=== PATIENT | male | born 1995 ===

== ENCOUNTER 2018-03-19 05:30 | Observation (INO) | payer OTHER ==
[2018-03-19] MEDS ORDERED: Iohexol 240 (50 ml) PO ONE (06:04)
[2018-03-19] MEDS ORDERED: Sodium Chloride 0.9% 1,000 ML IV STA (06:05)
[2018-03-19] MEDS ORDERED: Iohexol 240 (50 ml) ONE (06:19)
[2018-03-19 06:28] LABS: BASO # 0.1 K/uL (0.0-0.2); BASO % 0.5 % (0.0-2.0); EOS # 0.1 K/uL (0.0-0.7); EOS % 0.4 % (0.0-4.0); HEMOGLOBIN 14.9 g/dL (12.0-18.0); LYMPH # 2.4 K/uL (1.0-4.3); LYMPH % 19.7 % (20.0-40.0); MEAN CELL VOLUME 84.1 fl (80.0-94.0); MEAN CORPUSCULAR HEMOGLOBIN 28.5 pg (27.0-31.0); MEAN CORPUSCULAR HGB CONC 33.9 g/dL (33.0-37.0); MEAN PLATELET VOLUME 7.4 fl (7.2-11.7); MONO # 1.2 K/uL (0.0-0.8); MONO % 9.9 % (0.0-10.0); NEUT # 8.4 K/uL (1.8-7.0); NEUT % 69.5 % (50.0-75.0); RBC 5.24 Mil/uL (4.40-5.90); RED CELL DISTRIBUTION WIDTH 13.6 % (11.5-14.5); WHITE BLOOD COUNT 12.1 K/uL (4.8-10.8)
--- NOTE | 2018-03-19 06:29 | ED PDOC ---
HPI: Abdomen Time Seen by Provider: 03/19/18 05:30 Chief Complaint (Nursing): Abdominal Pain Chief Complaint (Provider): Abdominal Pain History Per: Patient History/Exam Limitations: no limitations Onset/Duration Of Symptoms: Days (x1) Current Symptoms Are (Timing): Still Present Associated Symptoms: Fever, Vomiting, Diarrhea Additional Complaint(s): 23 year old male presents to ED with complaints of abdominal pain x1 day and has no past medical history. Patient notes being seen by PMD x1 week ago for flu-like symptoms and was prescribed Tamiflu with no relief. (+) vomiting, lack of PO tolerance, fever, and diarrhea x3 episodes. Patient confirms taking Bentyl for abdominal pain as well. PCP: FREDERICK Past Medical History Reviewed: Historical Data, Nursing Documentation, Vital Signs Vital Signs: Last Vital Signs Temp 98.3 F 03/19/18 23:27 Pulse 60 03/19/18 23:27 Resp 18 03/19/18 23:27 BP 106/66 03/19/18 23:27 Pulse Ox 99 03/19/18 23:27 - Medical History PMH: No Chronic Diseases - Surgical History Surgical History: No Surg Hx - Family History Family History: States: Unknown Family Hx - Social History Current smoker - smoking cessation education provided: Yes Ex-Smoker (has not smoked in the last 12 months): No Alcohol: Occasional Drugs: Denies - Home Medications Home Medications: Ambulatory Orders Medication Instructions Recorded No Known Home Med 03/19/18 - Allergies Allergies/Adverse Reactions: Allergies Allergy/AdvReac Type Severity Reaction Status Date / Time No Known Allergies Allergy Verified 03/19/18 05:42 Review of Systems ROS Statement: Except As Marked, All Systems Reviewed And Found Negative Constitutional: Positive for: Fever Gastrointestinal: Positive for: Vomiting, Abdominal Pain, Diarrhea, Other ((-) PO tolerance) Physical Exam - Reviewed Nursing Documentation Reviewed: Yes Vital Signs Reviewed: Yes - Physical Exam Appears: Positive for: Non-toxic, No Acute Distress Skin: Positive for: Normal Color, Warm, Dry Eye Exam: Positive for: Normal appearance, EOMI, PERRL ENT: Positive for: Normal ENT Inspection Cardiovascular/Chest: Positive for: Regular Rate, Rhythm. Negative for: Murmur Respiratory: Positive for: Normal Breath Sounds. Negative for: Respiratory Distress Gastrointestinal/Abdominal: Positive for: Soft, Tenderness (tenderness in upper abdomen). Negative for: Normal Exam Extremity: Positive for: Normal ROM. Negative for: Deformity Neurologic/Psych: Positive for: Alert, Oriented. Negative for: Motor/Sensory Deficits - Laboratory Results Result Diagrams: 03/19/18 06:09 03/19/18 06:09 - ECG O2 Sat by Pulse Oximetry: 98 (RA) Pulse Ox Interpretation: Normal Medical Decision Making Medical Decision Makin Initial impression: abdominal pain r/o intra-abdominal pathology Initial plan: * CTA A/P * Labs * Lipase * NS IV * Iohexol 50mL PO * Pepcid 20mg IVP * Zofran 4mg PO * Urine C&S * UA * Re-eval 0700 Patient will be signed out to Dr. Lebron pending work up and CT. Scribe Attestation: Documented by Vane Garcia acting as a scribe for Supriya Kevin MD. Scribe Attestation: All medical record entries made by the Scribe were at my direction and personally dictated by me. I have reviewed the chart and agree that the record accurately reflects my personal performance of the history, physical exam, medical decision making, and the department course for this patient. I have also personally directed, reviewed, and agree with the discharge instructions and disposition. Disposition - Clinical Impression Clinical Impression: Colitis, Intractable abdominal pain - Patient ED Disposition Is Patient to be Admitted: Transfer of Care - Disposition Disposition: Transfer of Care Disposition Time: 07:00 Condition: STABLE Patient Signed Over To: Tammy Lebron Handoff Comments: pending work up and CT
[2018-03-19 06:32] LABS: ALB/GLOB RATIO 1.1 (1.0-2.1); ALBUMIN 3.8 g/dL (3.5-5.0); ALT/SGPT 29 U/L (21-72); AST/SGOT 20 U/L (17-59); BLOOD UREA NITROGEN 17 mg/dl (9-20); CALCIUM 9.2 mg/dL (8.4-10.2); GFR AFRICAN-AMERICAN > 60; GFR NON-AFRICAN AMERICAN > 60; LIPASE 66 U/L (23-300)
[2018-03-19 06:54] LABS: URINE BILIRUBIN NEGATIVE (NEGATIVE); URINE BLOOD NEGATIVE (NEGATIVE); URINE CLARITY CLEAR (Clear); URINE COLOR COLORLESS (YELLOW); URINE GLUCOSE (UA) NEG (Normal); URINE LEUKOCYTE ESTERASE NEG Leu/uL (Negative); URINE PROTEIN NEGATIVE (NEGATIVE); URINE UROBILINOGEN 0.2-1.0 mg/dL (0.2-1.0)
[2018-03-19] MEDS ORDERED: Sodium Chloride 0.9% 100 ML ONE (08:22)
[2018-03-19] MEDS ORDERED: Iohexol 300 100 ML IJ ONE (08:22)
--- NOTE | 2018-03-19 09:33 | CT ---
PROCEDURE: CT Abdomen and Pelvis with contrast HISTORY: abd pain COMPARISON: None. TECHNIQUE: Following oral and intravenous contrast administration, a CT examination of the abdomen and pelvis performed from the domes of the diaphragms to the symphysis pubis with reformatted datasets provided not only axial but also sagittal and coronal series. Contrast dose: Omnipaque 300, 95 cc Radiation dose: Total exam DLP = 390.37 mGy-cm. This CT exam was performed using one or more of the following dose reduction techniques: Automated exposure control, adjustment of the mA and/or kV according to patient size, and/or use of iterative reconstruction technique. FINDINGS: LOWER THORAX: Unremarkable. LIVER: Unremarkable. No gross lesion or ductal dilatation. GALLBLADDER AND BILE DUCTS: Unremarkable. PANCREAS: Unremarkable. No gross lesion or ductal dilatation. SPLEEN: Unremarkable. ADRENALS: Unremarkable. No mass. KIDNEYS AND URETERS: Unremarkable. No hydronephrosis. No solid mass. VASCULATURE: Unremarkable. No aortic aneurysm. BOWEL: Stomach appears collapsed and is poorly evaluated. There is no bowel obstruction with opacified small bowel loops appear unremarkable per oral contrast was not yet reached the colon, however, the right hemicolon appears thick-walled with very little air in the lumen in a pattern suspicious for segmental colitis of indeterminate etiology. Consider infectious or inflammatory causes which are the most likely. Ischemia neoplasm not excluded but are included in the differential diagnosis. Good opacification is appreciated throughout the celiac and superior mesenteric arteries as well as the inferior mesenteric artery. There is a mild amount retained fecal material identified in the colon. The terminal ileum appears unremarkable. APPENDIX: Normal appearing retrocecal appendix. PERITONEUM: Unremarkable. No free fluid. No free air. LYMPH NODES: Unremarkable. No enlarged lymph nodes. BLADDER: Unremarkable. REPRODUCTIVE: Unremarkable. BONES: No acute fracture. OTHER FINDINGS: None. IMPRESSION: 1. Findings suspicious for segmental colitis affecting the right hemicolon without abscess or free intraperitoneal gas appreciated. No ascites. Consider infectious or inflammatory causes with additional differential diagnostic possibilities listed above. Follow-up colonoscopy advised following therapy. 2. Normal-appearing appendix.
[2018-03-19] MEDS ORDERED: Ciprofloxacin 400mg/200ml D5W 400 MG/200 ML BAG IV STA (09:43)
[2018-03-19] MEDS ORDERED: metroNIDAZOLE 500mg/100ml NS 100 ML IV STA (09:43)
--- NOTE | 2018-03-19 09:43 | ED PDOC ---
- Laboratory Results Result Diagrams: 03/19/18 06:09 03/19/18 06:09 - ECG O2 Sat by Pulse Oximetry: 98 Medical Decision Making Medical Decision Making: Accession No. : [id number] Patient Name / ID : HELGA GRAJEDA / [id number] Exam Date : 03/19/2018 08:34:22 ( Approved ) Study Comment : Sex / Age : M / 23Y Creator : Noam Sue MD Dictator : Noam Sue MD Twisthand : Self Pay Specialist : Noam Sue MD Approver2 : Report Date : 03/19/2018 09:31:18 My Comment : PROCEDURE: CT Abdomen and Pelvis with contrast HISTORY: abd pain COMPARISON: None. TECHNIQUE: Following oral and intravenous contrast administration, a CT examination of the abdomen and pelvis performed from the domes of the diaphragms to the symphysis pubis with reformatted datasets provided not only axial but also sagittal and coronal series. Contrast dose: Omnipaque 300, 95 cc Radiation dose: Total exam DLP = 390.37 mGy-cm. This CT exam was performed using one or more of the following dose reduction techniques: Automated exposure control, adjustment of the mA and/or kV according to patient size, and/or use of iterative reconstruction technique. FINDINGS: LOWER THORAX: Unremarkable. LIVER: Unremarkable. No gross lesion or ductal dilatation. GALLBLADDER AND BILE DUCTS: Unremarkable. PANCREAS: Unremarkable. No gross lesion or ductal dilatation. SPLEEN: Unremarkable. ADRENALS: Unremarkable. No mass. KIDNEYS AND URETERS: Unremarkable. No hydronephrosis. No solid mass. VASCULATURE: Unremarkable. No aortic aneurysm. BOWEL: Stomach appears collapsed and is poorly evaluated. There is no bowel obstruction with opacified small bowel loops appear unremarkable per oral contrast was not yet reached the colon, however, the right hemicolon appears thick-walled with very little air in the lumen in a pattern suspicious for segmental colitis of indeterminate etiology. Consider infectious or inflammatory causes which are the most likely. Ischemia neoplasm not excluded but are included in the differential diagnosis. Good opacification is appreciated throughout the celiac and superior mesenteric arteries as well as the inferior mesenteric artery. There is a mild amount retained fecal material identified in the colon. The terminal ileum appears unremarkable. APPENDIX: Normal appearing retrocecal appendix. PERITONEUM: Unremarkable. No free fluid. No free air. LYMPH NODES: Unremarkable. No enlarged lymph nodes. BLADDER: Unremarkable. REPRODUCTIVE: Unremarkable. BONES: No acute fracture. OTHER FINDINGS: None. IMPRESSION: 1. Findings suspicious for segmental colitis affecting the right hemicolon without abscess or free intraperitoneal gas appreciated. No ascites. Consider infectious or inflammatory causes with additional differential diagnostic possibilities listed above. Follow-up colonoscopy advised following therapy. 2. Normal-appearing appendix. Pt administered Cipro and Flagyl. Disposition - Clinical Impression Clinical Impression: Colitis - POA Present On Arrival: None - Disposition Disposition: Hospitalized as Observation Patient Disposition Time: 09:52 Condition: STABLE Forms: [employer] ([employer]) Addendum Addendum: 03/19/18 07:00 Pt signed out by Dr. Kevin pending labs and CT.
[2018-03-19] MEDS ORDERED: Ciprofloxacin 400mg/200ml D5W 400 MG/200 ML BAG IVPB ONE (09:51)
[2018-03-19] MEDS ORDERED: metroNIDAZOLE 500mg/100ml NS 100 ML IVPB ONE (09:51)
[2018-03-19] MEDS ORDERED: Atrop/Hyos/Scop/PhenoB Elixir PO STA (10:56)
[2018-03-19] MEDS ORDERED: Alum-Mag Hydrox-Simethicone Susp (30 mL) PO STA (10:56)
[2018-03-19] MEDS ORDERED: Alum-Mag Hydrox-Simethicone Susp (30 mL) ONE (11:05)
--- NOTE | 2018-03-19 13:51 | CP.PCM.CON ---
<Franklin Bailey - Last Filed: 03/19/18 13:56> History of Present Illness - History of Present Illness History of Present Illness: PGY5 GI Fellow Consult Note Patient is a 23yo male with no significant past medical history who presented to the ED with complaint of diffuse abdominal pain. The patient developed flu- like symptoms one week ago with whole body myalgias, fever/chills. He presented to a local urgent care which diagnosed him with influenza and gave him a prescription for Tamiflu. He took this medication for 4 days but stopped when he developed severe cramping, stabbing diffuse abdominal pain along with nausea and vomiting. He again returned to the urgent care center where he was told to stop the Tamiflu, was given IV fluids and a prescription for pepcid and zofran. He did well for 1-2 days but again developed severe pain last night, waking him from sleep. Moreover, he developed 10+ episodes of loose, watery stool. As pain was unbearable, he came to the ED for further evaluation. CT performed in the ED did reveal right sided colitis. Patient was given one dose of Cipro/Flagyl as well as multiple doses of morphine. Currently, he admits to ongoing pain, though improved from previous. 12 system ROS performed and negative except where stated PMHx: See HPI PSHx: Denies FHx: Denies any significant family history Social: +tobacco use - vape pen/e-cig; +EtOH use 2 days prior to admission; denies illicit drug use Endo: No prior endoscopic evaluation Past Patient History - Past Social History Smoking Status: vapor - MUSCULOSKELETAL/RHEUMATOLOGICAL Hx Falls: No - PSYCHIATRIC Hx Substance Use: No - SURGICAL HISTORY Hx Surgeries: No - ANESTHESIA Hx Anesthesia: No Hx Anesthesia Reactions: No Meds Allergies/Adverse Reactions: Allergies Allergy/AdvReac Type Severity Reaction Status Date / Time No Known Allergies Allergy Verified 03/19/18 05:42 Physical Exam - Constitutional Appears: Non-toxic, No Acute Distress - Eye Exam Eye Exam: EOMI, PERRL - ENT Exam ENT Exam: Mucous Membranes Moist - Respiratory Exam Respiratory Exam: Clear to Auscultation Bilateral. absent: Rales, Rhonchi, Wheezes - Cardiovascular Exam Cardiovascular Exam: RRR, +S1, +S2 - GI/Abdominal Exam GI & Abdominal Exam: Normal Bowel Sounds, Soft, Tenderness (diffusely, worst in RUQ, epigastric). absent: Distended, Firm, Guarding, Organomegaly, Rigid - Extremities Exam Extremities exam: Positive for: normal inspection. Negative for: pedal edema - Neurological Exam Neurological exam: Alert, Oriented x3 - Psychiatric Exam Psychiatric exam: Normal Affect, Normal Mood - Skin Skin Exam: Dry, Warm Results - Vital Signs Recent Vital Signs: Last Vital Signs Temp 98.2 F 03/19/18 13:13 Pulse 64 03/19/18 13:13 Resp 20 03/19/18 13:13 BP 114/71 03/19/18 13:13 Pulse Ox 99 03/19/18 13:13 - Labs Result Diagrams: 03/19/18 06:09 03/19/18 06:09 Labs: Laboratory Results - last 24 hr 03/19/18 03/19/18 03/19/18 06:09 06:09 06:46 WBC 12.1 H RBC 5.24 Hgb 14.9 Hct 44.1 MCV 84.1 MCH 28.5 MCHC 33.9 RDW 13.6 Plt Count 307 MPV 7.4 Neut % (Auto) 69.5 Lymph % (Auto) 19.7 L Carson % (Auto) 9.9 Eos % (Auto) 0.4 Baso % (Auto) 0.5 Neut # (Auto) 8.4 H Lymph # (Auto) 2.4 Carson # (Auto) 1.2 H Eos # (Auto) 0.1 Baso # (Auto) 0.1 Sodium 142 Potassium 4.8 Chloride 100 Carbon Dioxide 27 Anion Gap 20 BUN 17 Creatinine 1.0 Est GFR ( Amer) > 60 Est GFR (Non-Af Amer) > 60 Random Glucose 105 Calcium 9.2 Total Bilirubin 0.3 AST 20 ALT 29 Alkaline Phosphatase 63 Total Protein 7.1 Albumin 3.8 Globulin 3.3 Albumin/Globulin Ratio 1.1 Lipase 66 Urine Color Colorless Urine Clarity Clear Urine pH 7.0 Ur Specific [place] < 1.005 Urine Protein Negative Urine Glucose (UA) Neg Urine Ketones Negative Urine Blood Negative Urine Nitrate Negative Urine Bilirubin Negative Urine Urobilinogen 0.2-1.0 Ur Leukocyte Esterase Neg Urine RBC (Auto) < 1 Assessment & Plan - Assessment and Plan (Free Text) Assessment: Patient is a 23yo male with no significant past medical history who presented to the ED with complaint of diffuse abdominal pain. -Abdominal pain; right-sided colitis noted on CT scan Plan: -Recommend IV Cipro/Flagyl -Check stool culture, O&P, C diff -Fecal leukocytes -Stool calprotectin -Analgesia/antiemetics per primary service -Liquid diet, advance as tolerated -If no improvement in symptoms, may require endoscopic evaluation during this admission Case discussed with Dr Arenas - Date & Time Date: 03/19/18 Time: 13:30 <Kusahl Arenas - Last Filed: 03/19/18 19:52> Meds - Medications Medications: Current Medications Acetaminophen (Tylenol 325mg Tab) 650 mg PO Q4 PRN PRN Reason: Fever >100.4 F Ciprofloxacin (Cipro 200mg/100ml D5w) 100 mls @ 100 mls/hr IVPB Q12 IBIS PRN Reason: Protocol Stop: 03/26/18 21:01 Metronidazole (Flagyl 500mg/100ml Ns) 100 mls @ 100 mls/hr IVPB Q8 IBIS PRN Reason: Protocol Last Admin: 03/19/18 17:32 Dose: 100 mls/hr Dextrose/Sodium Chloride (Dextrose 5%/0.45% Ns 1000 Ml) 1,000 mls @ 80 mls/hr IV .[id number] [facility] Stop: 03/20/18 16:48 Last Admin: 03/19/18 17:26 Dose: 80 mls/hr Ketorolac Tromethamine (Toradol) 15 mg IVP Q6 PRN PRN Reason: Pain, moderate (4-7) Last Admin: 03/19/18 15:24 Dose: 15 mg Pantoprazole Sodium (Protonix Inj) 40 mg IVP DAILY [facility] Last Admin: 03/19/18 17:32 Dose: 40 mg Results - Vital Signs Recent Vital Signs: Last Vital Signs Temp 99.3 F 03/19/18 16:03 Pulse 59 L 03/19/18 16:03 Resp 18 03/19/18 16:03 BP 108/63 03/19/18 16:03 Pulse Ox 97 03/19/18 16:03 - Labs Result Diagrams: 03/19/18 06:09 03/19/18 06:09 Labs: Laboratory Results - last 24 hr 03/19/18 03/19/18 03/19/18 06:09 06:09 06:46 WBC 12.1 H RBC 5.24 Hgb 14.9 Hct 44.1 MCV 84.1 MCH 28.5 MCHC 33.9 RDW 13.6 Plt Count 307 MPV 7.4 Neut % (Auto) 69.5 Lymph % (Auto) 19.7 L Carson % (Auto) 9.9 Eos % (Auto) 0.4 Baso % (Auto) 0.5 Neut # (Auto) 8.4 H Lymph # (Auto) 2.4 Carson # (Auto) 1.2 H Eos # (Auto) 0.1 Baso # (Auto) 0.1 Sodium 142 Potassium 4.8 Chloride 100 Carbon Dioxide 27 Anion Gap 20 BUN 17 Creatinine 1.0 Est GFR ( Amer) > 60 Est GFR (Non-Af Amer) > 60 Random Glucose 105 Calcium 9.2 Total Bilirubin 0.3 AST 20 ALT 29 Alkaline Phosphatase 63 Total Protein 7.1 Albumin 3.8 Globulin 3.3 Albumin/Globulin Ratio 1.1 Lipase 66 Urine Color Colorless Urine Clarity Clear Urine pH 7.0 Ur Specific [place] < 1.005 Urine Protein Negative Urine Glucose (UA) Neg Urine Ketones Negative Urine Blood Negative Urine Nitrate Negative Urine Bilirubin Negative Urine Urobilinogen 0.2-1.0 Ur Leukocyte Esterase Neg Urine RBC (Auto) < 1 Assessment & Plan - Assessment and Plan (Free Text) Plan: Patient seen and evaluated with GI fellow. Agree with above assessment
[2018-03-19 14:51] VITALS: RESP 18
[2018-03-19] MEDS: Dextrose 5%/0.45% NS 1,000 ML IV SCH (17:26)
[2018-03-19] MEDS: metroNIDAZOLE 500mg/100ml NS 100 ML IVPB SCH (17:32)
--- NOTE | 2018-03-19 18:53 | RAD ---
PROCEDURE: CHEST RADIOGRAPH, 1 VIEW HISTORY: chest pain COMPARISON: None available. FINDINGS: LUNGS: The lungs are well inflated and clear. PLEURA: No pneumothorax or pleural fluid seen. CARDIOVASCULAR: Normal. OSSEOUS STRUCTURES: No significant abnormalities. VISUALIZED UPPER ABDOMEN: Normal. OTHER FINDINGS: None. IMPRESSION: No acute findings.
[2018-03-19] MEDS: Ciprofloxacin 200mg/100ml D5W 100 ML IVPB SCH (20:14)
--- NOTE | 2018-03-19 20:24 | CARD ---
APPROVED REPORT EKG Measurement Heart [id number] <Conclusion> Sinus rhythm with premature atrial complexes Otherwise normal ECG
--- NOTE | 2018-03-19 23:00 | HP ---
HISTORY OF PRESENT ILLNESS: Mr. Navarrete is a 23-year-old male who was admitted via the emergency room because of abdominal pain. He indicates that he had flu about a week prior to this admission and went to the Urgent Center where he was placed on Tamiflu. Subsequently, he developed abdominal pain after taking the Tamiflu for few days and went back to Urgent Center where he was told to stop it and was given IV fluids, Pepcid, and some Zofran and two days later, he developed right-sided abdominal pain and was unable to sleep at night. He had multiple episodes of diarrhea and came to the emergency room where he had a CAT scan of the abdomen done, which showed right-sided colitis who was therefore advised admission for workup and therapy. PAST MEDICAL HISTORY: He has an unremarkable past medical history. FAMILY HISTORY: Nonrevealing. SOCIAL HISTORY: Presently, he is on VIP E-cigarettes, quit smoking. Drinks alcohol occasionally and had some alcohol 2 days prior to admission. REVIEW OF SYSTEMS: Essentially unremarkable. PHYSICAL EXAMINATION: GENERAL: The patient is alert, oriented, and appears to be still in moderate distress because of abdominal discomfort. VITAL SIGNS: Blood pressure 108/63, pulse of 59, respiratory rate 18, he is afebrile to low-grade temperature of 99.3 degrees Fahrenheit, and O2 sat 97% on room air. SKIN: Shows fair turgor. HEENT: Pupils are equal and reactive to light and accommodation. Mouth shows fair hygiene. NECK: JVP flat. LUNGS: Clear. HEART: Regular. No murmurs or gallop. ABDOMEN: Soft with right-sided abdominal tenderness especially in the right lower mid quadrant area. GENITALIA AND RECTAL: Deferred. CENTRAL NERVOUS SYSTEM: Grossly intact. LABORATORY DATA: Remarkable for WBC of 12.1, hemoglobin 14.9, platelet count of 307,000, neutrophils 69, and lymphocytes 19. Sodium 142, potassium 4.8, BUN of 17, creatinine 1, AST 20, ALT 29, and lipase 66. EKG is remarkable for sinus rhythm with premature atrial complexes. CT scan of abdomen and pelvis remarkable for segmental colitis affecting the right hemicolon without abscesses of free intraperitoneal gas appreciated. No ascites, considering infectious or inflammatory causes with additional differential diagnosis possibly noted as mentioned above. Followup colonoscopy advised following therapy and normal appearing appendix. IMPRESSION: Acute colitis. PLAN: Intravenous antibiotics, analgesics for pain, and clear liquid diet. We will monitor the patient in house. Gastroenterology consult already requested. Further therapy will depend on findings. $#DTPHYNAME DD: $#DTDICT $#TMDICT(h:mm:ss) DT: $#DTTRAN $#TMTRAN([facility]:mm:ss) Job # $#DOCID
[2018-03-19 23:27] VITALS: PULSE 60
[2018-03-20] MEDS: metroNIDAZOLE 500mg/100ml NS 100 ML IVPB SCH ×2 (00:21→08:46)
[2018-03-20 01:55] VITALS: O2SAT 98
[2018-03-20] MEDS: Dextrose 5%/0.45% NS 1,000 ML IV SCH (05:46)
--- NOTE | 2018-03-20 07:40 | CP.PCM.PN ---
<Franklin Bailey - Last Filed: 03/20/18 09:27> Subjective - Date & Time of Evaluation Date of Evaluation: 03/20/18 Time of Evaluation: 06:50 - Subjective Subjective: PGY5 GI Fellow Progress Note Patient seen and examined bedside this morning. The patient states that his pain has improved significantly, but continues to have intermittent episodes in the RUQ and epigastric area. No nausea, vomiting, diarrhea, fever, chills overnight. Tolerating liquid diet without issue. 12 system ROS performed and negative except where stated. Objective - Vital Signs/Intake and Output Vital Signs (last 24 hours): Temp Pulse Resp BP Pulse Ox 98.3 F 60 18 106/66 98 03/20/18 01:00 03/20/18 01:00 03/20/18 01:00 03/20/18 01:00 03/20/18 01:54 - Medications Medications: Current Medications Acetaminophen (Tylenol 325mg Tab) 650 mg PO Q4 PRN PRN Reason: Fever >100.4 F Ciprofloxacin (Cipro 200mg/100ml D5w) 100 mls @ 100 mls/hr IVPB Q12 IBIS PRN Reason: Protocol Stop: 03/26/18 21:01 Last Admin: 03/19/18 20:14 Dose: 100 mls/hr Metronidazole (Flagyl 500mg/100ml Ns) 100 mls @ 100 mls/hr IVPB Q8 IBIS PRN Reason: Protocol Last Admin: 03/20/18 00:21 Dose: 100 mls/hr Dextrose/Sodium Chloride (Dextrose 5%/0.45% Ns 1000 Ml) 1,000 mls @ 80 mls/hr IV .[id number] [facility] Stop: 03/20/18 16:48 Last Admin: 03/20/18 05:46 Dose: 80 mls/hr Ketorolac Tromethamine (Toradol) 15 mg IVP Q6 PRN PRN Reason: Pain, moderate (4-7) Last Admin: 03/20/18 05:44 Dose: 15 mg Pantoprazole Sodium (Protonix Inj) 40 mg IVP DAILY [facility] Last Admin: 03/19/18 17:32 Dose: 40 mg - Labs Labs: 03/19/18 06:09 03/19/18 06:09 - Constitutional Appears: Non-toxic, No Acute Distress - Eye Exam Eye Exam: EOMI, PERRL - ENT Exam ENT Exam: Mucous Membranes Moist - Respiratory Exam Respiratory Exam: Clear to Ausculation Bilateral. absent: Rales, Rhonchi, Wheezes - Cardiovascular Exam Cardiovascular Exam: RRR, +S1, +S2 - GI/Abdominal Exam GI & Abdominal Exam: Soft, Tenderness (mild RUQ, epigastric pain), Normal Bowel Sounds. absent: Distended, Firm, Guarding, Rigid, Organomegaly - Extremities Exam Extremities Exam: Normal Inspection. absent: Pedal Edema - Neurological Exam Neurological Exam: Alert, Awake, Oriented x3 - Psychiatric Exam Psychiatric exam: Normal Affect, Normal Mood - Skin Skin Exam: Dry, Warm Assessment and Plan - Assessment and Plan (Free Text) Assessment: Patient is a 23yo male with no significant past medical history who presented to the ED with complaint of diffuse abdominal pain. -Abdominal pain; right-sided colitis noted on CT scan Plan: -Improvements noted -Continue Cipro/Flagyl for 7-10 day course -Stool cultures/WBC cannot be collected in absence of diarrhea -Advance diet as tolerated -May benefit from outpatient evaluation, colonoscopy if symptoms persist -Analgesia/antiemetics per primary service Case discussed with Dr Arenas <Kushal Arenas - Last Filed: 03/20/18 20:08> Objective - Vital Signs/Intake and Output Vital Signs (last 24 hours): Temp Pulse Resp BP Pulse Ox 97.4 F L 60 18 106/67 98 03/20/18 07:41 03/20/18 01:00 03/20/18 07:41 03/20/18 07:41 03/20/18 07:41 - Labs Labs: 03/20/18 10:30 03/20/18 10:30 Assessment and Plan - Assessment and Plan (Free Text) Plan: Clinically better. Seen with GI fellow. Agree with above.
[2018-03-20 07:42] VITALS: BP 106/67; TEMP 97.4
--- NOTE | 2018-03-20 08:58 | CP.PCM.PN ---
Subjective - Date & Time of Evaluation Date of Evaluation: 03/20/18 Time of Evaluation: 08:58 - Subjective Subjective: feels better no apparent distress today diarrhea and abdominal pains improved tolerating liquid diet Objective - Vital Signs/Intake and Output Vital Signs (last 24 hours): Temp Pulse Resp BP Pulse Ox 97.4 F L 60 18 106/67 98 03/20/18 07:41 03/20/18 01:00 03/20/18 07:41 03/20/18 07:41 03/20/18 07:41 - Medications Medications: Current Medications Acetaminophen (Tylenol 325mg Tab) 650 mg PO Q4 PRN PRN Reason: Fever >100.4 F Ciprofloxacin (Cipro 200mg/100ml D5w) 100 mls @ 100 mls/hr IVPB Q12 IBIS PRN Reason: Protocol Stop: 03/26/18 21:01 Last Admin: 03/19/18 20:14 Dose: 100 mls/hr Metronidazole (Flagyl 500mg/100ml Ns) 100 mls @ 100 mls/hr IVPB Q8 IBIS PRN Reason: Protocol Last Admin: 03/20/18 08:46 Dose: 100 mls/hr Dextrose/Sodium Chloride (Dextrose 5%/0.45% Ns 1000 Ml) 1,000 mls @ 80 mls/hr IV .[id number] [facility] Stop: 03/20/18 16:48 Last Admin: 03/20/18 05:46 Dose: 80 mls/hr Ketorolac Tromethamine (Toradol) 15 mg IVP Q6 PRN PRN Reason: Pain, moderate (4-7) Last Admin: 03/20/18 05:44 Dose: 15 mg Pantoprazole Sodium (Protonix Inj) 40 mg IVP DAILY [facility] Last Admin: 03/20/18 08:47 Dose: 40 mg - Labs Labs: 03/19/18 06:09 03/19/18 06:09 - Constitutional Appears: No Acute Distress - Head Exam Head Exam: ATRAUMATIC, NORMAL INSPECTION, NORMOCEPHALIC - Eye Exam Eye Exam: EOMI, Normal appearance, PERRL Pupil Exam: NORMAL ACCOMODATION, PERRL - ENT Exam ENT Exam: Mucous Membranes Moist, Normal Exam - Neck Exam Neck Exam: Full ROM, Normal Inspection. absent: Lymphadenopathy - Respiratory Exam Respiratory Exam: Clear to Ausculation Bilateral, NORMAL BREATHING PATTERN - Cardiovascular Exam Cardiovascular Exam: REGULAR RHYTHM, +S1, +S2. absent: Murmur - GI/Abdominal Exam GI & Abdominal Exam: Soft, Normal Bowel Sounds. absent: Tenderness - Rectal Exam Rectal Exam: NORMAL INSPECTION - Extremities Exam Extremities Exam: Full ROM, Normal Capillary Refill, Normal Inspection. absent : Joint Swelling, Pedal Edema - Back Exam Back Exam: NORMAL INSPECTION - Neurological Exam Neurological Exam: Alert, Awake, CN II-XII Intact, Normal Gait, Oriented x3 - Psychiatric Exam Psychiatric exam: Normal Affect, Normal Mood - Skin Skin Exam: Dry, Intact, Normal Color, Warm Assessment and Plan - Assessment and Plan (Free Text) Assessment: acute colitis--improved Plan: advance diet case discussed with gi d/c today if stable
[2018-03-20] MEDS: Ciprofloxacin 200mg/100ml D5W 100 ML IVPB SCH (10:19)
[2018-03-20 10:47] LABS: BASO % 0.3 % (0.0-2.0); EOS # 0.1 K/uL (0.0-0.7); EOS % 1.2 % (0.0-4.0); HEMOGLOBIN 14.1 g/dL (12.0-18.0); LYMPH % 19.7 % (20.0-40.0); MEAN CELL VOLUME 83.1 fl (80.0-94.0); MEAN CORPUSCULAR HEMOGLOBIN 28.3 pg (27.0-31.0); MEAN PLATELET VOLUME 7.2 fl (7.2-11.7); MONO # 1.2 K/uL (0.0-0.8); MONO % 11.3 % (0.0-10.0); NEUT # 6.9 K/uL (1.8-7.0); NEUT % 67.5 % (50.0-75.0); NRBC % 0.1 % (0.0-0.0); RED CELL DISTRIBUTION WIDTH 13.4 % (11.5-14.5); WHITE BLOOD COUNT 10.3 K/uL (4.8-10.8)
[2018-03-20 11:04] LABS: BLOOD UREA NITROGEN 8 mg/dl (9-20); GFR AFRICAN-AMERICAN > 60; GFR NON-AFRICAN AMERICAN > 60
== END 2018-03-20 14:43 | disposition home or self-care (01) ==
LOC: H.ER 05:30 → H.ERHOLD 10:33 → H.MEDSURG1 12:37 → INTOOBSV 16:33 → OBSVTOIN 16:33
PROVIDERS: ADMIT Internal Medicine Pulmonary Disease; ATTEND Internal Medicine Pulmonary Disease
DX: K52.9 Noninfective gastroenteritis and colitis, unspecified (principal); F17.200 Nicotine dependence, unspecified, uncomplicated
CPT/HCPCS: 36415; 71045; 74177; 80048; 80053; 81003; 83690; 85025; 87045; 87086; 87177; 87209; 87230; 89055; 93005; 96361; 96365; 96375; 96376; 99283; C9113; G0378; J0744; J1885; J2270; J7040; J7042; Q9966; Q9967